=== PATIENT | female | born 1995 | race Caucasian/White ===

== ENCOUNTER → 2016-07-05 08:03 | Day surgery (SDC) | payer OTHER ==
--- NOTE | 2016-06-28 08:23 | HP ---
PREOPERATIVE HISTORY AND PHYSICAL: DATE OF SURGERY/ADMISSION: 07/05/16 [facility] PROCEDURE: Left ring finger trigger finger release. CHIEF COMPLAINT: Left ring finger triggering. 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 Since then, she has had trouble using her hand to do activities such as taping, which is part of her major of athletic training at . She has developed some triggering in the finger and has failed conservative treatment including two cortisone injections over the past year or so. The triggering had persisted and she is interested in pursuing more definitive treatment for the problem at this time. She has consented to proceed with surgery in the form of left ring finger trigger finger release. PAST MEDICAL HISTORY: 1. Depression/anxiety. 2. Asthma. PAST SURGICAL HISTORY: Ovarian cystectomy. CURRENT MEDICATIONS: 1. Ativan 0.5 mg 1 tab q.h.s. 2. Lexapro 20 mg daily. 3. Minocycline HCL daily. 4. ProAir HFA 108 two puffs p.r.n. ALLERGIES: PENICILLIN, reaction unknown. FAMILY MEDICAL HISTORY: Cancer. SOCIAL HISTORY: The patient is a student at the [employer] and the athletic training major. She denies tobacco use. She does admit to smoking marijuana on occasion and also drinking alcohol on rare occasion. REVIEW OF SYSTEMS: General: Negative for fevers, chills, or night sweats. No known anesthesia problems. HEENT: Negative for headache, lightheadedness, or syncopal episodes. Integumentary: Negative for abrasions, lesions, or open wounds. Cardiothoracic: Negative for chest pain, palpitations, or edema. Negative for hypertension. Pulmonary: Positive for asthma and shortness of breath with exertion. Negative for chronic cough or COPD. GI: Negative for nausea, vomiting, diarrhea, constipation, or GERD. : Negative for nocturia, urinary frequency, urgency, history of UTIs or kidney problems. Musculoskeletal : Positive for current complaint. Negative for chronic or intermittent back pain. No history of fractures. Neurological: Negative for paresthesias, numbness, history of seizure, stroke or epilepsy. Endocrine: Negative for diabetes or thyroid issues. Hematologic: Negative for easy bruising, anemia, excessive bleeding, or history of DVT. Infectious Disease: Negative for history of MRSA, hepatitis C, or HIV. PHYSICAL EXAMINATION GENERAL: Well-developed, well-nourished 20-year-old female in no acute distress. VITAL SIGNS: Height 6 feet tall, weight 159 pounds. Pulse rate 60, blood pressure 100/80. HEENT: Normocephalic, atraumatic. Pupils were equal, round and reactive to light and accommodation. Extraocular movements are intact. NECK: Supple. No palpable lymph nodes. Throat is clear. PULMONARY: Lungs are clear to auscultation bilaterally. No wheezes, rales, or rhonchi. CARDIOTHORACIC: Regular rate and rhythm. S1 and S2. No murmurs, rubs, or gallops. No edema. ABDOMEN: Positive bowel sounds, soft, nontender. MUSCULOSKELETAL: On exam of her left ring finger, she has tenderness to palpation at the A1 aleksandr and triggering with flexion. She has full extension. Neurovascular function is intact. NEUROLOGICAL: Alert and oriented x3. Cranial nerves II through XII are intact. Sensation is intact to light touch. IMPRESSION: Left ring finger trigger finger after injury. PLAN/RECOMMENDATIONS: The patient is scheduled to undergo a left ring finger trigger finger release with Dr. Larose on 07/05/16. She will return to the office 10 to 14 days postop for followup and suture removal. A prescription for Ultracet was e-scribed to the patient's pharmacy for postoperative pain management. HELENA BUCHANAN [id number]/[facility] #: [id number] ASHLIE
[~2016-07-05 08:03] MED LIST: Acetaminophen TAB* 325 MG PO PRN; Buffered Lidocaine 1% SYRIN* 3 ML/SYR SYRINGE INTRADERM ONE; Dexamethasone IV* 4 MG/ML 1 ML (4 MG) ONE; Famotidine IV* 10 MG/ML 2 ML (20 mg) IV ONE; Famotidine IV* 10 MG/ML 2 ML (20 mg) ONE; HYDROcodone/ACETAMIN 5-325 MG* 1 TAB PO PRN; Ketorolac INJ* 30 MG/ML 1 ML VIAL IV PRN; Lidocaine 1% INJ* 10 MG/ML 30 ML SDV ONE; Lidocaine 2% PF* 5 ML VIAL ONE; Midazolam* 1 MG/ML 2 ML VIAL (2 MG) ONE; PROCHLORPERAZINE INJ 5 MG/ML 2 ML VIAL IV PRN; Propofol* 10 MG/ML 20 ML BTL IV PUSH ONE; fentaNYL* 50 MCG/ML 2 ML VIAL (100 MCG VIAL) IV PRN; fentaNYL* 50 MCG/ML 2 ML VIAL (100 MCG VIAL) ONE
[2016-07-05] MEDS: Dexamethasone IV* 4 MG/ML 1 ML (4 MG) IV SLOW PU ONE ×2 (08:41→08:47)
[2016-07-05 10:08] VITALS: BP 117/76
--- NOTE | 2016-07-05 23:09 | OP ---
DATE OF OPERATION: 07/05/16 [facility] DATE OF : 89 SURGEON: Radhika Larose MD COMPUTER SYSTEMS INTEGRATOR: HELENA Ewing ANESTHESIOLOGIST: Bean Woods MD ANESTHESIA: Local MAC. PRE-OP DIAGNOSIS: Left ring finger trigger finger. POST-OP DIAGNOSIS: Left ring finger trigger finger. OPERATIVE PROCEDURE: Left ring finger trigger release. ESTIMATED BLOOD LOSS: Zero. TOURNIQUET TIME: 8 minutes. INDICATION FOR PROCEDURE: Anisha is an 20-year-old female with locking and triggering of her left ring finger. She has failed conservative treatment with cortisone injections who presents for trigger finger release of the left ring finger. DESCRIPTION OF PROCEDURE: The patient was brought to the operating room and was given a sedation anesthetic and a local infiltration of 10 cc of 1% plain in the palm of her left hand. Skin of her left hand and forearm was prepped and draped in the usual sterile fashion. The hand and forearm were exsanguinated and the tourniquet elevated to 250 mmHg. A transverse incision was made centered over the A1 aleksandr of the left ring finger. We dissected through the subcutaneous tissue down to the A1 aleksandr. The digital neurovascular bundles were retracted by the pathology assistant, Donna Gilman. The A1 aleksandr was incised longitudinally completely releasing the FDS and FDP tendons which were in very good condition. The wound was irrigated and skin edges were reapproximated with 4-0 nylon suture. The wound was dressed with Xeroform, 4x4, Webril and an Paul wrap. The patient tolerated the procedure well and was brought to the recovery room in good condition. [id number]/[facility] #: [id number] MTDD
== END | disposition home or self-care (01) ==
LOC: OREAST 08:03
PROVIDERS: ATTEND Orthopaedic Surgery
DX: M65.342 Trigger finger, left ring finger (principal); J45.909 Unspecified asthma, uncomplicated
CPT/HCPCS: J1100; J2001; J2250; J2704; J3010